=== PATIENT | female | born 1995 | race African-American/Black ===

== ENCOUNTER 2021-07-12 07:40 | Inpatient (IN) | payer BC, OTHER ==
[2021-07-12] MEDS ORDERED: DEXTROSE 5%-LACTATED RINGERS 1,000 ML IV SCH ×2 (09:15→10:00)
[2021-07-12 09:21] VITALS: BMI 34.4
[2021-07-12 10:19] LABS: BASO % 0.2 % (0-2.0); EOS % 0.4 % (0-4.5); HEMATOCRIT 34.2 % (32.4-45.2); HEMOGLOBIN 12.2 GM/dL (10.7-15.3); LYMPH % 22.3 % (8-40); MCH 32.6 pg (25.7-33.7); MCHC 35.5 g/dl (32.0-36.0); MEAN CELL VOLUME 91.8 fl (80-96); MEAN PLT VOLUME 8.3 fl (7.5-11.1); MONO % 7.2 % (3.8-10.2); NEUT % 69.9 % (42.8-82.8); PLATELET COUNT 189 10^3/uL (134-434); RBC 3.73 M/mm3 (3.60-5.2); RDW 13.2 % (11.6-15.6); WHITE BLOOD COUNT 6.5 K/mm3 (4.0-10.0)
[2021-07-12 10:26] LABS: INR 0.94 (0.83-1.09); PROTHROMBIN TIME (PATIENT) 10.8 SEC (9.7-13.0)
[2021-07-12 10:29] LABS: ACTIVATED PTT 30.7 SECONDS (25.2-36.5)
[2021-07-12 10:36] LABS: BLOOD UREA NITROGEN 7.2 mg/dL (7-18)
[2021-07-12 10:39] LABS: CREATININE 0.5 mg/dL (0.55-1.3)
[2021-07-12] MEDS: MISOPROSTOL 100 MCG TABLET PV SCH ×3 (10:50→17:59)
[2021-07-12] MEDS ORDERED: PROMETHAZINE HCL 25 MG/1 ML VIAL IVPB ONE (21:29)
[2021-07-12] MEDS ORDERED: PROMETHAZINE HCL 25 MG/1 ML VIAL ONE (21:37)
[2021-07-12] MEDS ORDERED: SODIUM CHLORIDE 1,000 ML IV STA (21:46)
[2021-07-12] MEDS ORDERED: FENTANYL/BUPIVACAINE/NS/PF - PCEA - 50 ML DISP.SYRIN EP ONE (22:22)
[2021-07-12] MEDS ORDERED: BUPIVACAINE HCL/PF 0.25% (2.5MG/ML) 10 ML VIAL ONE (22:27)
[2021-07-12] MEDS ORDERED: NALOXONE HCL 0.4 MG/ML VIAL IVPUSH PRN (23:08)
[2021-07-12] MEDS ORDERED: FENTANYL/BUPIVACAINE/NS/PF - PCEA - 50 ML DISP.SYRIN EP SCH (23:15)
[2021-07-13] MEDS: MISOPROSTOL 100 MCG TABLET PV SCH ×2 (00:45→04:30)
[2021-07-13] MEDS ORDERED: LIDOCAINE HCL 1% PRESERVATIVE FREE - 30ML VIAL ONE (00:57)
[2021-07-13] MEDS ORDERED: OXYTOCIN 20 UNITS in 0.9% NS 20 UNIT/1,000 ML INFUS.BAG IV ONE ×2 (00:57→03:30)
[2021-07-13] MEDS ORDERED: IBUPROFEN 600 MG TABLET (FP) PO PRN (02:39)
[2021-07-13] MEDS ORDERED: ACETAMINOPHEN 325 MG TABLET (FP) PO PRN (02:39)
[2021-07-13] MEDS ORDERED: WITCH HAZEL 50% (TUCKS) 40 PAD/JAR PAD TP PRN (02:39)
[2021-07-13] MEDS ORDERED: BENZOCAINE 28 GM HEMORRHOIDAL OINTMENT TP PRN (02:39)
[2021-07-13] MEDS ORDERED: BENZOCAINE 20% 57 GM BOTTLE TP PRN (02:39)
[2021-07-13] MEDS ORDERED: OXYTOCIN 20 UNITS in 0.9% NS 20 UNIT/1,000 ML INFUS.BAG IV SCH (02:45)
[2021-07-13 03:25] LABS: CORD BASE EXCESS -5.2 mmol/L (0-2); CORD HCO3 20.7 mmHg (20-29); CORD PCO2 41.5 mmHg (30-78); CORD pH 7.315 (7.14-7.44)
[2021-07-13] MEDS: FERROUS SO4 325 MG TABLET (FP) PO SCH ×3 (08:40→18:13)
[2021-07-13] MEDS: PRENATAL VITAMINS W/ FOLIC ACID TABLET (FP) PO SCH (10:53)
[2021-07-14 07:16] LABS: BASO % 0.1 % (0-2.0); EOS % 0.1 % (0-4.5); HEMATOCRIT 31.6 % (32.4-45.2); HEMOGLOBIN 11.4 GM/dL (10.7-15.3); LYMPH % 8.7 % (8-40); MCHC 35.9 g/dl (32.0-36.0); MEAN CELL VOLUME 91.7 fl (80-96); MEAN PLT VOLUME 8.2 fl (7.5-11.1); MONO % 7.4 % (3.8-10.2); NEUT % 83.7 % (42.8-82.8); PLATELET COUNT 160 10^3/uL (134-434); RBC 3.45 M/mm3 (3.60-5.2); RDW 13.4 % (11.6-15.6); WHITE BLOOD COUNT 15.1 K/mm3 (4.0-10.0)
[2021-07-14] MEDS: FERROUS SO4 325 MG TABLET (FP) PO SCH ×3 (09:50→17:20)
[2021-07-14] MEDS: PRENATAL VITAMINS W/ FOLIC ACID TABLET (FP) PO SCH (09:50)
[2021-07-14] MEDS ORDERED: SENNOSIDES/DOCUSATE COMBO (SENNA PLUS) TABLET (UD) PO PRN (22:00)
[2021-07-15] MEDS: FERROUS SO4 325 MG TABLET (FP) PO SCH ×2 (08:54→12:14)
[2021-07-15] MEDS: PRENATAL VITAMINS W/ FOLIC ACID TABLET (FP) PO SCH (09:36)
[2021-07-15 11:42] VITALS: BP 101/71; PULSE 101; TEMP 98.2
== END 2021-07-15 12:50 | disposition home or self-care (01) | DRG 806 ==
LOC: JLDR 07:40 → J3W 07-13 03:56
PROVIDERS: ADMIT Obstetrics & Gynecology Maternal & Fetal Medicine; ATTEND Obstetrics & Gynecology Maternal & Fetal Medicine
PROC: 3E0P7VZ Introduction of Hormone into Female Reproductive, Via Natural or Artificial Opening (ICD-10-PCS; 2021-07-12)
PROC: 10E0XZZ Delivery of Products of Conception, External Approach (ICD-10-PCS; principal; 2021-07-13)
DX: O36.8130 Decreased fetal movements, third trimester, not applicable or unspecified (principal); O99.354 Diseases of the nervous system complicating childbirth; Z37.0 Single live birth; G93.2 Benign intracranial hypertension; O99.214 Obesity complicating childbirth; E66.9 Obesity, unspecified; Z3A.39 39 weeks gestation of pregnancy
CPT/HCPCS: 36415; 36600; 59409; 80048; 82803; 85025; 85610; 85730; 86780; 86850; 86900; 86901; C9803-CS; U0003; U0005